=== PATIENT | male | born 1950 | race Caucasian/White ===

== ENCOUNTER 2019-12-26 13:37 | Outpatient (CLI) | payer MEDICARE, SELFPAY ==
--- NOTE | ~2019-12-26 | CT_ITS ---
EXAMINATION:CT lung screening DATE: 12/26/2019 13:56 INDICATION: Personal history of tobacco dependence. Smoker with 55 pack year history. TECHNIQUE: Computed tomography (CT) of the chest was performed without intravenous contrast. Automate d exposure control and iterative reconstruction technique were employed. The dose-length product (DLP ) was 89.61 mGy-cm. COMPARISON: None. FINDINGS: The lungs demonstrate mild atelectasis. There is a 4 mm nodule in left lower lobe. No pleur al effusion. The heart size is normal. No pericardial effusion. Calcified right hilar lymph nodes are consistent with old granulomatous disease. Calcifications in the spleen are consistent with old gran ulomatous disease. There are bridging endplate osteophytes at multiple levels in the spine, consisten t with diffuse idiopathic skeletal hyperostosis (DISH). There is severe thoracic spondylosis. IMPRESSION: 1. Lung-RADS category 2: Benign appearance or behavior. Continue annual screening with noncontrast lo w-dose chest CT in 12 months. Reviewed, dictated and finalized at location A. ER NEEDLE LOOM IMPRESSION: 1. Lung-RADS category 2: Benign appearance or behavior. Continue annual screeni ng with noncontrast low-dose chest CT in 12 months.
== END 2019-12-26 13:38 | disposition home or self-care (01) ==
PROVIDERS: PCP Family Medicine; Visit Provider Family Medicine
DX: Z12.2 Encounter for screening for malignant neoplasm of respiratory organs (principal); Z87.891 Personal history of nicotine dependence
CPT/HCPCS: G0297